=== PATIENT | male | born 1980 | race Caucasian/White ===

== ENCOUNTER 2024-02-18 02:49 | Day surgery (SDC) | payer OTHER, SELFPAY ==
[2024-02-17 11:28] VITALS: BMI 34.2
[2024-02-18 07:46] VITALS: BP 139/88; PULSE 98; RESP 20; TEMP 35.9; O2SAT 97
--- NOTE | 2024-02-18 07:53 | WPDANESEPPF ---
Anes - Initial Pre Proc Eval Procedure: Operation Date: 02/18/24 09:00 Proposed Procedures p Esophagogastroduodenoscopy & Colonoscopy - Jesse Crum DO Date/Time: 02/18/24 07:53 Surgeon: Jesse Crum DO Pre Op Diagnosis: Anemia Patient Data Age: 43 Gender: M Height: 1.91 m Weight: 119.4 kg Last Vital Signs Temp 35.9 C L 02/18/24 07:46 Pulse 98 02/18/24 07:46 Resp 20 02/18/24 07:46 BP 139/88 02/18/24 07:46 Pulse Ox 97 02/18/24 07:46 O2 Del Method Room Air 02/18/24 07:46 Allergies Allergy/AdvReac Type Severity Reaction Status Date / Time morphine Allergy Intermediate Hives Verified 02/18/24 07:42 cortisone AdvReac Intermediate Rash Verified 02/18/24 07:42 Home Medications Medication Instructions Recorded Confirmed Type ferrous sulfate 325 mg (65 mg 325 mg PO DAILY 02/17/24 02/18/24 History iron) tablet (Iron (ferrous sulfate)) fluoxetine 20 mg tablet 20 mg PO DAILY 02/17/24 02/18/24 History risperidone 1 mg tablet 1 mg PO QAM 02/17/24 02/18/24 History risperidone 3 mg tablet 3 mg PO HS 02/17/24 02/18/24 History ropinirole 0.5 mg tablet 0.5 mg PO HS 02/17/24 02/18/24 History rosuvastatin 5 mg tablet 5 mg PO DAILY 02/17/24 02/18/24 History Patient hx anesthesia problems: none Family hx anesthesia problems: none Results Review: All pre-operative results and documents have been reviewed as part of the pre-operative evaluation. [facility] Social History Social History Living arrangements: incarcerated Anes - Eval Final PreProcedure Day of Procedure 02/18/24 07:53 Patient weight: obese Heart: regular rate and rhythm Lungs: clear to auscultation and normal air movement Airway: Mallampati scale class II Neurological: alert and oriented Last oral intake: >/= 8 hours (water 6 ounces at 0400. ) ASA classification: III Emergent: no Anesthetic plan: proceed Anesthesia type and monitoring: general GIVS Results Review: All pre-operative results and documents have been reviewed as part of the pre-operative evaluation. Informed Consent: The patient's anesthetic plan and its attendant risks and benefits were discussed with the patient/family/POA. Questions were solicited and answers provided to the satisfaction of the patient/family/POA.
[2024-02-18] MEDS: LACTATED RINGERS 1,000 ML 150 ML IV CONT (08:08)
[2024-02-18] MEDS: GENTAMICIN 80MG/SOD CHL 50 ML 80 MG/50 ML BAG 100 MG IVPB (08:09)
--- NOTE | 2024-02-18 08:20 | P.HP_ITS ---
H&P: HPI History of Present Illness Date/Time: 02/18/24 08:20 Chief Complaint: this is a 43-year-old care home patient who presents for EGD and colonoscopy. He has been experiencing anemia but does not have an identifiable source. He denies any hematochezia or melena. He does get some occasional acid reflux. He denies smoking. He takes occasional ibuprofen. He denies any family history of colon cancer. Review of Systems Review of Systems: All systems reviewed & are unremarkable except as noted in HPI and below Constitutional: Constitutional: Denies chills, Denies fever(s), Denies headache(s) and Denies weight loss Eyes: Eyes: Denies change in vision ENT: Denies dizziness, Denies headache(s), Denies neck mass and Denies throat swelling Cardiovascular: Cardiovascular: Denies chest pain, Denies lightheadedness and Denies dyspnea Respiratory: Respiratory: Denies cough, Denies dyspnea and Denies wheezing Gastrointestinal: Gastrointestinal: Denies abdominal pain, Denies change in bowel habits, Denies nausea and Denies vomiting Genitourinary: Genitourinary: Denies hematuria and Denies dysuria Musculoskeletal: Musculoskeletal: Reports as per HPI Integumentary/Breasts: Skin/Breast: Reports as per HPI Neurologic: Denies dizziness and Denies headache(s) Allergic/Immunologic: Allergic/Immunologic: Denies throat swelling and Denies wheezing [facility] Social History Social History Living arrangements: incarcerated [facility] Home Medications and Allergies Home Medications Medication Instructions Recorded Confirmed Type ferrous sulfate 325 mg (65 mg 325 mg PO DAILY 02/17/24 02/18/24 History iron) tablet (Iron (ferrous sulfate)) fluoxetine 20 mg tablet 20 mg PO DAILY 02/17/24 02/18/24 History risperidone 1 mg tablet 1 mg PO QAM 02/17/24 02/18/24 History risperidone 3 mg tablet 3 mg PO HS 02/17/24 02/18/24 History ropinirole 0.5 mg tablet 0.5 mg PO HS 02/17/24 02/18/24 History rosuvastatin 5 mg tablet 5 mg PO DAILY 02/17/24 02/18/24 History Allergies Allergy/AdvReac Type Severity Reaction Status Date / Time morphine Allergy Intermediate Hives Verified 02/18/24 07:42 cortisone AdvReac Intermediate Rash Verified 02/18/24 07:42 Vital Signs Vital Signs - 24 hr 02/18/24 07:46 Temperature 96.6 F L Pulse Rate 98 Respiratory Rate 20 Blood Pressure 139/88 Pulse Oximetry 97 Oxygen Delivery Room Air Exam Const: General: no acute distress and alert Orientation/consciousness: patient oriented x3 HENMT: Head: normocephalic and atraumatic Ears: hearing grossly normal bilaterally Face/Nose/Sinus: Normal nares present Mouth: Yes Normal oral and palatal mucosa present Eyes: Periorbital: periorbital findings normal Sclera: sclerae normal EOM: EOMs intact bilaterally Neck: Neck: normal visual inspection, no lymphadenopathy and trachea midline Chest: Chest palpation & inspection: normal inspection of the chest Resp: Effort & Inspection: normal respiratory effort Auscultation: clear to auscultation bilaterally Cardio: Jugular venous distension: no JVD Rate: regular rate Rhythm: regular rhythm Heart sounds: S1 normal heart sound present and S2 normal heart sound present Peripheral pulses: Peripheral pulses 2+ throughout GI: Inspection: normal to inspection GI Palp: Yes Soft to palpation, No Tenderness to palpation present (GI), No Guarding due to palpation present (GI) and No Rebound tenderness present Percussion: Yes normal to percussion Auscultation: normal bowel sounds : General: Yes no CVA tenderness Back/Spine/Pelvis: Back: no CVA tenderness Neuro: General: patient oriented x3, no focal motor deficits and CN's II-XI intact bilaterally Cognition (Neuro): normal cognition Speech: normal speech Motor exam (neuro): 5/5 motor strength present throughout Extrem: General: capillary refill normal and no clubbing, cyanosis or edema Assessment and Plan Assessment and plan (1) Anemia: Code(s): D64.9 - Anemia, unspecified Status: Acute Assessment and Plan: I have recommended EGD and colonoscopy. I have discussed the procedure, risks, benefits, and alternatives. Questions were answered. Patient is agreeable to proceed. (2) GERD (gastroesophageal reflux disease): Code(s): K21.9 - Gastro-esophageal reflux disease without esophagitis Status: Acute (3) Screening for colorectal cancer: Code(s): Z12.11 - Encounter for screening for malignant neoplasm of colon; Z12.12 - Encounter for screening for malignant neoplasm of rectum Status: Acute
[2024-02-18] MEDS: BENZOCAINE (*SP) 60 ML SPRAY CAN (HURRICAINE) 1 SPRAY MUCOUS MEM (08:40)
[2024-02-18] MEDS: AMPICILLIN 2 GM/NS 100 ML 2 GM/100 ML BAG IVPB (08:40)
--- NOTE | 2024-02-18 08:56 | SUR.OPER ---
EGD END 829 COLONOSCOPY START 855
[2024-02-18 09:11] VITALS: BP 107/73; PULSE 66; RESP 20; O2SAT 99
[2024-02-18 09:21] VITALS: BP 119/83; PULSE 63; RESP 20; O2SAT 98
[2024-02-18 09:31] VITALS: BP 130/88; PULSE 57; RESP 14; O2SAT 99
[2024-02-18 09:52] LABS: HPYLORIRESULT Negative (Negative)
--- NOTE | 2024-02-18 14:29 | SUR.PHASEII ---
Pt. reports drinking 8 ounces of water at 0730, DrAndrew and anesthesia team aware, will continue to monitor.
== END 2024-02-18 09:48 | disposition home or self-care (01) ==
PROVIDERS: PCP Internal Medicine; Visit Provider Surgery
PROC: 0DJ08ZZ Inspection of Upper Intestinal Tract, Via Natural or Artificial Opening Endoscopic (ICD-10-PCS; CPT 43235; principal; 2024-02-18 09:00)
DX: Z12.11 Encounter for screening for malignant neoplasm of colon (principal); K62.1 Rectal polyp; K21.00 Gastro-esophageal reflux disease with esophagitis, without bleeding; K29.80 Duodenitis without bleeding; K29.00 Acute gastritis without bleeding; D64.9 Anemia, unspecified; E66.9 Obesity, unspecified; Z68.32 Body mass index [BMI] 32.0-32.9, adult
CPT/HCPCS: 43239; 45380; 87081; 88305; 88312; 88342; J0290; J1580; J2003; J2704; J7120